=== PATIENT | female | born 1965 | race Caucasian/White ===

== ENCOUNTER 2017-05-12 06:55 | Day surgery (SDC) | payer BC, OTHER ==
[2017-04-28 15:24] VITALS: BMI 50.0
--- NOTE | 2017-04-28 16:03 | PAT Medication Instructions ---
Service Date Apr 28, 2017. Current Home Medication List Atenolol (Tenormin), 50 MG PO QAM Docusate Sodium (Colace), 1 CAP PO PRN Hctz/Losartan (Hyzaar 25MG/100MG), 1 TAB PO QAM Ibuprofen (Advil), 400 MG PO PRN Psyllium (Metamucil), 1 DOSE PO PRN Ranitidine (Zantac), 300 MG PO HS Medication Instructions For Your Scheduled Surgery - Check with surgeon for instructions: Ibuprofen (Advil), 400 MG PO PRN - Hold the following medications the morning of surgery: Docusate Sodium (Colace), 1 CAP PO PRN Hctz/Losartan (Hyzaar 25MG/100MG), 1 TAB PO QAM Psyllium (Metamucil), 1 DOSE PO PRN - Take the following medications the morning of surgery with a sip of water: Atenolol (Tenormin), 50 MG PO QAM - Take the following medications as scheduled the night before surgery: Ranitidine (Zantac), 300 MG PO HS Psyllium (Metamucil), 1 DOSE PO PRN (if needed) Docusate Sodium (Colace), 1 CAP PO PRN (if needed) If you have any questions please call us at [phone] or [phone] or [phone]
[2017-04-28 16:39] LABS: BASO % 0.3 %; BASO ABS # 0.02 K/uL (0-0.2); EOS % 3.5 %; EOS ABS # 0.27 K/uL (0-0.5); HEMATOCRIT 42.3 % (37-47); HEMOGLOBIN 14.6 g/dL (12.0-16.0); IG# 0.02 K/uL (0.00-0.02); LYMPH % 30.8 %; LYMPH ABS # 2.41 K/uL (1.2-3.4); MEAN CELL VOLUME 92.2 fL (80-100); MEAN CORPUSCULAR HEMOGLOBIN 31.8 pg (25-34); MEAN CORPUSCULAR HGB CONC 34.5 g/dl (32-36); MEAN PLATELET VOLUME 9.9 fL (7.4-10.4); MONO % 10.2 %; NEUT % 54.9 %; PLATELET COUNT 294 K/uL (130-400); RED CELL DISTRIBUTION WIDTH CV 13.2 % (11.5-14.5); RED CELL DISTRIBUTION WIDTH SD 44.4 fL (36.4-46.3); WHITE BLOOD COUNT 7.82 K/uL (4.8-10.8)
[2017-04-28 16:44] LABS: CREATININE 0.81 mg/dl (0.60-1.20)
[2017-04-28 16:45] LABS: CALCIUM 9.3 mg/dl (8.5-10.1); POTASSIUM 3.2 mmol/L (3.5-5.1)
[~2017-05-12] VITALS: Ht 157.5 cm; Wt 124.6 kg
[~2017-05-12 06:55] MED LIST: ATEN50TA8 PO; CEFAZOLIN 3000MG IV PUSH 15 ML IV SCH; DOCU-94 PO; HYZ/10015 PO; IBUP-1050 PO; LACTATED RINGER'S 1000ML 1,000 ML IV SCH; PSYL48.59 PO; RANI300T2 PO
[2017-05-12 07:27] VITALS: BP 141/80; PULSE 71; TEMP 37; O2SAT 97; Ht 157.5 cm; Wt 124.6 kg
[2017-05-12] MEDS ORDERED: MIDAZOLAM HCL 1 MG/ML 2ML VIAL ONE (07:46)
[2017-05-12] MEDS ORDERED: FENTANYL CITRATE INJ 50 MCG/1 ML 2 ML VIAL ONE ×2 (07:46→08:31)
[2017-05-12] MEDS ORDERED: BUPIVACAINE/EPINEPHRINE 0.5% MPF 1:200,000 30 ML VIAL ONE (07:52)
--- NOTE | 2017-05-12 08:04 | History & Physical Bridge Note ---
H&P Re-Evaluation Bridge Note: I have examined the patient, reviewed the History & Physical and in the interval since the performance of the History & Physical I have noted the following changes of clinical significance: No changes noted
[2017-05-12] MEDS ORDERED: PHENYLEPHRINE 100MCG/ML 5ML SYR IV PRN (08:45)
[2017-05-12] MEDS ORDERED: ONDANSETRON INJ 2 MG/ML 2 ML VIAL IV PRN ×3 (08:45→10:15)
[2017-05-12] MEDS ORDERED: ATROPINE SULFATE 0.1 MG/ML 5ML SYR IV PRN ×2 (08:45)
[2017-05-12] MEDS ORDERED: EpHEDrine SULFATE INJ 50 MG/ML AMP IV PRN ×2 (08:45)
[2017-05-12] MEDS ORDERED: ARISTA ABSORBABLE HEMOSTAT 3GM TOP ONE ×2 (09:15→09:51)
--- NOTE | 2017-05-12 09:49 | [facility] Post Operative Brief Note ---
Immediate Operative Summary Operative Date May 12, 2017. Pre-Operative Diagnosis Incisional Hernia; Painful Scar Post-Operative Diagnosis Same as preop;adhesions Procedure(s) Performed Open Incisional Hernia Repair with Mesh, Scar Revision, Enterolysis Surgeon Dr. Nugent Lockstitch Cup Setter Surgeon(s) Venkat Diaz PA-C Estimated Blood Loss 20 ml Findings Consistent with Post-Op Diagnosis Specimens None per Surgeon Anesthesia Type General Complication(s) none
[2017-05-12] MEDS ORDERED: HYDROmorphone INJ 2 MG/ML SYR/VIAL ONE (09:50)
[2017-05-12] MEDS ORDERED: ONDANSETRON INJ 2 MG/ML 2 ML VIAL ONE (09:52)
[2017-05-12] MEDS ORDERED: GLYCOPYRROLATE INJ 0.2 MG/ML VIAL ONE (09:52)
[2017-05-12] MEDS ORDERED: EpHEDrine SULFATE 50MG/5ML SYR ONE (09:52)
[2017-05-12] MEDS ORDERED: NEOSTIGMINE METHYLSULFATE 5 MG/5 ML SYR ONE (09:52)
[2017-05-12] MEDS ORDERED: LIDOCAINE HCL 2% 2 ML VIAL (20MG/ML) ONE (09:52)
[2017-05-12] MEDS ORDERED: ROCURONIUM BROMIDE 10 MG/ML 5 ML VIAL IV ONE (09:52)
[2017-05-12] MEDS ORDERED: KETOROLAC TROMETHAMINE 30 MG/ML VIAL ONE (09:52)
[2017-05-12] MEDS ORDERED: DEXAMETHASONE SOD INJ 4 MG/ML VIAL ONE (09:52)
[2017-05-12] MEDS ORDERED: PROPOFOL IV EMULSION 10 MG/ML 20 ML VIAL IV ONE (09:52)
[2017-05-12] MEDS ORDERED: ESMOLOL HCL 10 MG/ML 10 ML VIAL ONE (09:59)
[2017-05-12] MEDS ORDERED: HYDR-5688 PO (10:04)
--- NOTE | 2017-05-12 10:07 | Discharge Instructions ---
Discharge Instructions Date of Service May 12, 2017. Visit Reason for Visit: Incisional Hernia, Painful Scar Discharge Discharge Diagnosis / Problem: hernia repair Discharge Goals Goal(s): Decrease discomfort Activity Recommendations Activity Limitations: as noted below Lifting Limitations: no more than 10 pounds Shower/Bathe: keep incision dry (ok to shower, keep drain as dry as possible) Driving or Machine Use: resume 3 days after discharge Anesthesia . Post Anesthesia Instructions: If you have had General Anesthesia or IV Sedation: * Do not drive today. * Resume driving when surgeon permits. * Do not make important decisions or sign legal documents today. * Call surgeon for: 1. Temperature elevations greater than 101 degrees F. 2. Uncontrollable pain. 3. Excessive bleeding. 4. Persistent nausea and vomiting. 5. Medication intolerance (nausea, vomiting or rash). * For nausea and vomiting use only clear liquids such as: tea, soda, bouillon until nausea subsides, then gradually increase diet as tolerated. * If you have any concerns or questions, call your surgeon's office. If physician is unavailable and it is an emergency, call 911 or go to the nearest emergency room. . Instructions / Follow-Up Instructions / Follow-Up Call the office to have drain removed next week () [phone] Diet Recommendations Recommended Home Diet: no limitations Procedures Procedures Performed: Open Incisional Hernia Repair with Mesh, Scar Revision, Enterolysis Pending Studies Studies pending at discharge: no Medical Emergencies . Who to Call and When: Medical Emergencies: If at any time you feel your situation is an emergency, please call 911 immediately. . Non-Emergent Contact Non-Emergency issues call your: Surgeon Call Non-Emergent contact if: you have a fever, temperature is above 101.5, your pain is not controlled, wound has increased redness, wound has increased pain, you have any medication questions . . "Provider Documentation" section prepared by Venkat Diaz. .
[2017-05-12] MEDS ORDERED: LACTATED RINGER'S 1000ML 1,000 ML IV SCH (10:08)
--- NOTE | 2017-05-12 10:12 | [facility] Operative Report ---
Operative Report Operative Date May 12, 2017. Pre-Operative Diagnosis Incisional Hernia; Painful Scar Post-Operative Diagnosis Same as preop;adhesions Procedure(s) Performed Open Incisional Hernia Repair with Mesh, Scar Revision, Enterolysis Surgeon Dr. Nugent Crap Shooter Surgeon(s) Venkat Diaz PA-C Estimated Blood Loss 20 ml Specimens None per Surgeon Drains 10 flat BOB Anesthesia Type General Complication(s) none Description of Procedure After informed consent was obtained the patient was taken to the operating room and placed in supine position. After successful intubation the abdomen was sterilely prepped and draped in usual fashion. The patient had a widened painful scar in her right mid abdomen. We made an elliptical incision around this with a 10 blade scalpel and carried down through the soft tissue using electrocautery. There was some thick fibrous tissue underneath the scar and we excised this all in one piece. Once we had the skin and scar removed we then went down through the soft tissue using electrocautery. We readily encountered a hernia sac which we opened and took down in 360. This exposed a portion of her transverse colon popping up through the hernia. We were able to identify one of the edges of the fascial defect and elevated with shantelle clamps. We then used traction /countertraction and Metzenbaum scissors to take down these adhesions involving primarily the colon. Once we had these adhesions down we were then able to more readily reduce the colon. We continued to do this around the fascial defect until we had the colon taken down in 360 leaving only a large discrete fascial defect. Once we freed up the edges is completely I then used #1 Ethibond in interrupted [id number] fashion to primarily close the defect. We spaced these about 1 cm apart for some added strength. Once we had it closed we thoroughly irrigated the wound/ controlled any small bleeding points using electrocautery. We then skeletonized the fascia around the previous defect using electrocautery. We then used a piece of Ovitex mesh as an onlay. We secured it using 0 Ethibond in simple interrupted fashion. We were able to get the mesh to overlap the defect for multiple centimeters in all directions. The mesh laid nice and flat and tension free. Once we had this secured we performed a final irrigation. There was adequate hemostasis. We placed Db powder over all the raw surfaces to help prevent seroma and hematoma formation. A 10 flat Amos-Hudson drain was also brought into the wound and brought out through a separate stab incision secured using 2-0 nylon. The deep layers were closed using 0 Vicryl the middle layers closed using 2-0 Vicryl and the skin closed using 3-0 Monocryl running fashion. Benzoin Steri- Strips and a sterile dressing were applied. Abdominal binder was also placed. The patient was then awakened extubated and transferred recovery in stable condition. My physician's bindery assistant was present throughout the entire case. He helped prepped the patient. He helped with exposure throughout the case. He helped with wound closure as well as dressing placement. I attest to the content of the Intraoperative Record and any orders documented therein. Any exceptions are noted below.
[2017-05-12] MEDS ORDERED: MoRPHine SULFATE 4 MG/ML 1 ML CARP\\VIAL IV PRN (10:15)
[2017-05-12] MEDS ORDERED: HYDROCODONE/ACETAMIN 5/325MG TAB PO PRN (10:15)
[2017-05-12] MEDS: FENTANYL CITRATE INJ 50 MCG/1 ML 2 ML VIAL IV PRN ×2 (10:19→10:24)
--- NOTE | 2017-05-12 10:39 | Anesthesiology Progress Note ---
Anesthesia Post Op Note Date & Time May 12, 2017 at 10:39 Vital Signs Pain Intensity: 4 Vital Signs Past 12 Hours Date Time Temp Pulse Resp B/P (MAP) Pulse Ox O2 Delivery O2 Flow Rate FiO2 05/12/17 10:35 36.2 65 15 122/69 95 Nasal Cannula 2 05/12/17 10:25 67 13 127/56 97 Oxymask 10 05/12/17 10:15 79 26 132/61 96 Oxymask 10 05/12/17 10:06 36.2 92 16 151/75 94 Oxymask 10 05/12/17 07:27 37 71 18 141/80 (100) 97 Room Air Notes Mental Status: alert / awake / arousable, participated in evaluation Pt Amnestic to Procedure: Yes Nausea / Vomiting: adequately controlled Pain: adequately controlled Airway Patency, RR, SpO2: stable & adequate BP & HR: stable & adequate Hydration State: stable & adequate Anesthetic Complications: no major complications apparent
[2017-05-12 11:20] VITALS: BP 125/55; PULSE 80; TEMP 37; O2SAT 96
[2017-05-12 11:50] VITALS: BP 112/55; PULSE 66; TEMP 36.4; O2SAT 96
== END 2017-05-12 12:10 | disposition home or self-care (01) ==
LOC: C.ACU 06:55
PROVIDERS: ATTEND Surgery
DX: K43.2 Incisional hernia without obstruction or gangrene (principal); L90.5 Scar conditions and fibrosis of skin; I10 Essential (primary) hypertension; Z68.43 Body mass index [BMI] 50.0-59.9, adult; E66.01 Morbid (severe) obesity due to excess calories; Z98.890 Other specified postprocedural states; Z98.51 Tubal ligation status; Z90.89 Acquired absence of other organs; Z98.818 Other dental procedure status; Z90.722 Acquired absence of ovaries, bilateral; Z87.891 Personal history of nicotine dependence; Z88.8 Allergy status to other drugs, medicaments and biological substances; Z82.3 Family history of stroke; Z80.9 Family history of malignant neoplasm, unspecified; Z83.3 Family history of diabetes mellitus; Z82.49 Family history of ischemic heart disease and other diseases of the circulatory system